=== PATIENT | female | born 1990 | race Caucasian/White ===

== ENCOUNTER 2018-06-14 15:46 | Outpatient (CLI) | payer SELFPAY ==
[2015-11-18 20:00] VITALS: BP 129/70
== END 2018-06-14 15:48 ==
LOC: LAB 15:46
PROVIDERS: ATTEND Obstetrics & Gynecology
DX: O03.9 Complete or unspecified spontaneous abortion without complication (principal)
CPT/HCPCS: 36415; 84702

== ENCOUNTER 2018-11-05 15:44 | Emergency (ER) | payer SELFPAY ==
[2018-11-05] MEDS ORDERED: cefTRIAXone SODIUM 1 GM INJ IM ONE (17:11)
[2018-11-05] MEDS ORDERED: AZITHROMYCIN 1 GM PACKET PO ONE (17:12)
[2018-11-05] MEDS ORDERED: LIDOCAINE HCL 1% PF 50MG/5ML AMP (IM/SUTURE/PAIN CLINIC) IJ ONE (17:12)
--- NOTE | 2018-11-05 17:17 | ED Physician Documentation ---
Female Urogenital Problems - HISTORIAN Historian: patient - HPI Stated Complaint: Abdominal pain vaginal discharge Chief Complaint: Female Urogenital Problems Additional Information: intro self as [employer]. pt presents to the ED requesting STI check. pt c/o lower abd pain that is worse with intercourse x 5 days. pt reports yellow mucous vaginal discharge. denies vaginal bleeding. Para 1 with multiple miscarriages. pt denies current chest pain, dyspnea, syncope/near syncope, headache, dizziness, visual disturbances, n/v/d, fever/chills, rash, sick contacts, dysuria, trauma. melena or hematochezia, bleeding or easy bruising, change in bowel or bladder function, no recent weight loss/gain, anxiety or depression. ROS Negative unless otherwise specified. - Vaginal Bleeding LNMP (Last Known Menstrual Period): 10/18/18 - ROS CONST: none - PAST HX Past History: none, other ("cyst on tailbone removal") Other History: none Allergies/Adverse Reactions: Allergies Allergy/AdvReac Type Severity Reaction Status Date / Time No Known Allergies Allergy Verified 11/18/15 18:26 Home Medications: Ambulatory Orders Medication Instructions Recorded Sulfamethoxazole/Trimethoprim 1 each PO DAILY #20 tablet 11/18/15 [Bactrim Ds] - SOCIAL HX Smoking History: cigarettes - FAMILY HX Family History: none - VITAL SIGNS Vital Signs: Vital Signs Temp Pulse Resp BP Pulse Ox 98.4 F 104 H 16 136/62 97 11/05/18 15:50 11/05/18 15:50 11/05/18 15:50 11/05/18 15:50 11/05/18 15:50 - REVIEWED ASSESSMENTS Nursing Assessment Reviewed: Yes Vitals Reviewed: Yes ED Results Lab/Radiology - Orders Orders: ED Orders Category Date Time Status GC [CHLAMYDIA & GONORRHOEAE] Stat Lab 11/05/18 16:00 Received PAP THIN PREP CHLAMYDIA GC Stat Lab 11/05/18 16:55 Received UA [URINALYSIS] Routine Lab 11/05/18 Ordered URINE HCG [URINE HCG] Stat Lab 11/05/18 Uncollected WET PREP-JANN Stat Lab 11/05/18 16:55 Received Female Urogenital Problems - EXAM General Appearance: no acute distress, alert EENT: eye inspection normal, ENT inspection normal, pharynx normal, no signs of dehydration, [place], no nystagmus, TM's nml Neck: nml inspection Respiratory: no resp. distress, breath sounds nml CVS: reg rate & rhythm, heart sounds normal, equal pulses, no murmur, no gallop, PMI nml, no JVD, no friction rub Abdomen: tenderness (mild suprapubic ) Pelvic: vaginal discharge, cerv.motion tenderness, adnexal tenderness (R), adnexal tenderness (L). No: herpes-like ulcerations, active bleeding, blood in vaginal vault (copous yellow mucous), blood clots in vault, cervical dilation, mass (R), mass (L) Back: non-tender, painless ROM Skin: color nml, no rash, warm,dry Extremities: non-tender, normal range of motion, no evidence of injury, no edema, J, [employer] Neuro: oriented X3, CN's nml as tested, motor nml, sensation nml, mood/affect nml Discharge Clincal Impression: Pelvic inflammatory disease (PID) Additional Instructions: Flagyl 500 mg twice a day for 14 days Doxycycline 100 mg twice a day for 14 days. pelvic rest, no tampons, no sexual activity until antibiotics resolved. then you must use protection until your cultures come back to make sure you are both adequately treated. follow up with health dept for further testing for hepatitis and HIV seek medical care immediately if difficult to wake or weakness, difficulty breathing, feeling faint or fainting, increased rash, chest pain, shortness of breath, or fever not controlled by tylenol/motrin or any concern. follow up with primary care next week or before if not improving as expected. PLEASE UNDERSTAND THAT THIS IS AN EMERGENCY EVALUATION FOR YOUR COMPLAINT AND BY NATURE IS LIMITED AND NOT A SUBSTITUTE FOR ONGOING MEDICAL CARE. EVEN THOUGH T EST RESULTS AND TREATMENT PLAN WERE EXPLAINED THERE MAY BE A NEED FOR ADDITIONAL TESTING TO FULLY DETERMINE THE EXTENT OF YOUR ILLNESS/INJURY/OR CONCERN SO YOU SHOULD CONTACT AND OR ESTABLISH WITH A PRIMARY CARE PROVIDER (OR REFERRAL DOCTOR IF APPLICABLE) FOR AN APPOINTMENT SOON POSSIBLE Condition: Good Disposition: 01 HOME, SELF-CARE Decision to Admit: NO Date of Decison to Admit: 11/05/18 Decision Time: 17:17
[2018-11-05] MEDS ORDERED: ACETAMINOPHEN 325 MG TABLET PO ONE (18:12)
[2018-11-06 09:40] VITALS: BP 132/62
[2018-11-08 12:39] LABS: APPEARANCE,URINE CLOUDY (CLEAR); COLOR,URINE AMBER (YELLOW); OCCULT BLOOD,URINE 1+ (NEGATIVE)
== END 2018-11-05 18:15 | disposition home or self-care (01) ==
LOC: ED 15:44
DX: N73.9 Female pelvic inflammatory disease, unspecified (principal); A74.9 Chlamydial infection, unspecified; A54.9 Gonococcal infection, unspecified
CPT/HCPCS: 81002; 87210; 87491; 87591; 88148; 99282; 99283; G0143

== ENCOUNTER 2019-01-20 09:02 | Emergency (ER) | payer SELFPAY ==
[2019-01-20 09:27] VITALS: BP 134/67
--- NOTE | 2019-01-20 09:27 | ED Physician Documentation ---
Upper Respiratory Symptoms - HISTORIAN Historian: patient - HPI Chief Complaint: Sore Throat Additional Information: Patient is a 28-year-old female who presents to the ER ambulatory with c/o sore throat, ear pain, and muscle aches that started yesterday. She c/o pain with swallowing- states that she has used chloraseptic lozenges with no relief. Onset: days ago (started yesterday) Duration: sudden-Onset Context: denies: recent foreign travel Severity: moderate Associated Symptoms: earache, sore throat. denies: fever Worsened by Deep Breath: No Further Comments: no - ROS CONST/EYES: denies: weakness, eye itching CVS/RESP: none LYMPH: swollen glands GI/: none NEURO/PSYCH: denies: dizziness MS/SKIN: muscle aches - PAST HX Lung Disease: other (smoker) PE Risk Factors: none Surgeries/Procedures: none Immunizations: denies: influenza, pneumovax Allergies/Adverse Reactions: Allergies Allergy/AdvReac Type Severity Reaction Status Date / Time No Known Allergies Allergy Verified 01/20/19 09:28 Home Medications: Ambulatory Orders Medication Instructions Recorded Amoxicillin [Trimox] 875 mg PO BID #20 tablet 01/20/19 - SOCIAL HX Smoking History: cigarettes, less than 1 pack/day Alcohol Use: none Drug Use: none - FAMILY HX Family History: none - VITAL SIGNS Vital Signs: Vital Signs Temp Pulse Resp BP Pulse Ox 97.9 F 94 H 15 134/67 100 01/20/19 09:44 01/20/19 09:44 01/20/19 09:44 01/20/19 09:44 01/20/19 09:44 - REVIEWED ASSESSMENTS Nursing Assessment Reviewed: Yes Vitals Reviewed: Yes ED Results Lab/Radiology - Lab Results Lab Results: Lab Results 01/20/19 09:29 Influenza A (Rapid) Negative (NEGATIVE) Influenza B (Rapid) Negative (NEGATIVE) Group A Strep Screen Positive H (NEGATIVE) - Orders Orders: ED Orders Category Date Time Status GRP A STREP SCREEN Stat Lab 01/20/19 09:29 Completed INFLUENZA A&B Stat Lab 01/20/19 09:29 Completed Upper Respiratory Symptoms - EXAM General Appearance: no acute distress, alert EENT: eyes nml inspection, PERRL, nose nml, airway nml, tonsillar exudate, tonsillar swelling Neck: normal inspection Respiratory: no resp. distress, breath sounds nml, speaks full sentences Abdomen: non-tender, nml bowel sounds, no distention CVS: reg rate & rhythm, heart sounds normal, equal pulses Skin: color nml, no rash, warm,dry Extremities: non-tender, normal range of motion Neuro/Psych: oriented x3, neuro intact, mood/affect nml Discharge Clincal Impression: Streptococcal pharyngitis Prescriptions: Amoxicillin [Trimox] 875 mg PO BID #20 tablet Referrals: Primary Doctor,No [Primary Care Provider] - 2 Days Additional Instructions: Increase fluid intake (no caffeine) Alternate Tylenol and Ibuprofen for fever/discomfort May use chloraseptic lozenges or spray for throat relief Hot tea with a tsp of honey helps thin secretions Work excuse given Condition: Good Disposition: 01 HOME, SELF-CARE Decision to Admit: NO Decision Time: 13:40
== END 2019-01-20 09:44 | disposition home or self-care (01) ==
LOC: ED 09:02
DX: J02.0 Streptococcal pharyngitis (principal); Z72.0 Tobacco use
CPT/HCPCS: 87400; 87880; 99283

== ENCOUNTER 2019-04-22 09:02 | Emergency (ER) | payer SELFPAY ==
--- NOTE | 2019-05-26 08:34 | Diagnostic Imaging Report ---
[facility] [id number] [facility], [facility] [address] [address] Report Submission Date: Apr 22, 2019 9:49:36 AM CDT Patient Study Name: MANSI KINGSLEY Date: Apr 22, 2019 9:28:09 AM CDT Modality Type: DX Gender: F Description: KNEE 1 OR 2 VIEWS : 86 Institution: [facility] Physician: [facility] Left knee History: Status post fall 8 days ago AP and lateral projections of the left knee demonstrate no osseous abnormality and no joint effusion. Impression: Unremarkable left knee. Electronically signed on Apr 22, 2019 9:49:36 AM CDT by: Vicenta MCCRARY
== END 2019-04-22 10:02 ==
LOC: ED 09:02
DX: S80.02XA Contusion of left knee, initial encounter (principal); W19.XXXA Unspecified fall, initial encounter; X58.XXXA Exposure to other specified factors, initial encounter; Y99.8 Other external cause status
CPT/HCPCS: 73560; 99282; 99283